=== PATIENT | male | born 1950 | race Caucasian/White ===

== ENCOUNTER → 2019-01-02 17:24 | Outpatient (CLI) | payer MEDICARE, OTHER, SELFPAY ==
--- NOTE | 2019-01-02 | DI.MRI.S_ITS ---
PROCEDURE: MR LUMBAR SPINE WO CON INDICATIONS: LOW BACK PAIN TECHNIQUE: Noncontrast sagittal T1 spin echo and T2 fast echo, sagittal STIR, axial T1 and T2 fast spin echo through the lumbar spine. In cases with scoliosis, additional coronal T2 fast spin echo may be performed. COMPARISON: [facility], MR, L-SPINE WITHOUT CONTRAST, 11/24/2016, 20:37. [facility], MR, L-SPINE WITHOUT CONTRAST, 03/21/2015, 13:43. [facility], CR, XR LUMBAR SPINE WITH OBLIQUES, 12/28/2018, 13:50. FINDINGS: Image quality: Excellent. Alignment and Curvature: There is normal bony alignment. Bone Marrow: Degenerative endplate signal changes at L2, L3 and L4. No acute vertebral body compression fractures. Spinal Cord: Conus medullaris terminates at the T12-L1 level. Visualized cord demonstrates normal signal and size. Paraspinous Soft Tissues: No paravertebral masses. L1-L2: Mild loss of disc height and disc desiccation. There is diffuse posterior disc bulge. Mild bilateral facet arthropathy and hypertrophy of ligamentum flavum. The central canal is patent. No foraminal stenosis. No definitive nerve root impingement. L2-L3: Moderate loss of disc height and disc desiccation. There is circumferential disc bulge and disc osteophyte complex. There is superimposed posterior central disc protrusion. Mild bilateral facet arthropathy and hypertrophy of ligamentum flavum. The central canal is moderately narrowed. Moderate bilateral foraminal stenosis. No definitive nerve root impingement. Compared to the last examination, there is slightly increased central canal and foraminal stenosis. L3-L4: Moderate loss of disc height and disc desiccation. There is circumferential disc bulge and disc osteophyte complex. There is superimposed left posterior lateral disc protrusion. Moderate bilateral facet arthropathy and hypertrophy of ligamentum flavum. The central canal is moderately narrowed. Severe left and mild right foraminal stenosis. Suspect left L4 nerve root impingement. Compared to the last examination, there is increased central canal and left foraminal stenosis. L4-L5: Mild loss of disc height and moderate disc desiccation. There is diffuse posterior disc bulge and disc osteophyte complex. There is superimposed posterior central disc protrusion. Moderate bilateral facet arthropathy and hypertrophy of ligamentum flavum. The central canal is severely narrowed. Moderate bilateral foraminal stenosis. Probable nerve root impingement. Compared to the last examination, there is increased central canal and foraminal stenosis. L5-S1: Severe loss of disc height and disc desiccation. There is diffuse circumferential disc bulge and disc osteophyte complex. Moderate bilateral facet arthropathy. The central canal is mildly narrowed. Moderate bilateral foraminal stenosis. No definitive nerve root impingement. Compared to the last examination, there is no significant change. IMPRESSION: 1. Progressive worsening of degenerative disc disease and facet arthropathy in lumbar spine. 2. Central canal stenosis, severe at L4-L5, moderate at L2-L3 and L3-L4. 3. Multilevel foraminal stenosis as described. Dictated by: David Duarte M.D. on 01/03/2019 at 9:35 Approved by: David Duarte M.D. on 01/03/2019 at 11:30
== END ==
PROVIDERS: PCP Physical Medicine & Rehabilitation Pain Medicine; Visit Provider Physical Medicine & Rehabilitation Pain Medicine
DX: M54.5 Low back pain (principal); M51.36 Other intervertebral disc degeneration, lumbar region; M51.37 Other intervertebral disc degeneration, lumbosacral region; M47.816 Spondylosis without myelopathy or radiculopathy, lumbar region; M47.817 Spondylosis without myelopathy or radiculopathy, lumbosacral region; M48.061 Spinal stenosis, lumbar region without neurogenic claudication; M48.07 Spinal stenosis, lumbosacral region
CPT/HCPCS: 72148